=== PATIENT | female | born 1935 | race African-American/Black ===

== ENCOUNTER 2022-03-24 15:44 | Emergency (ER) | payer OTHER ==
[~2022-03-24] VITALS: Ht 152.4 cm; Wt 68.9 kg
[2022-03-24] MEDS ORDERED: ALLOPURINOL (15:59)
--- NOTE | 2022-03-24 16:01 | NUR ---
Dr Cordoba at the bedside for MSE.
[2022-03-24] MEDS ORDERED: MORPHINE SULFATE 2 MG/1 ML DISP.SYRIN IV ONE (16:15)
[2022-03-24] MEDS ORDERED: IV NORMAL SALINE 1000 ML BAG IV ONE (16:15)
[2022-03-24] MEDS ORDERED: MORPHINE SULFATE 4 MG/1 ML DISP.SYRIN ONE (16:16)
[2022-03-24 16:28] LABS: HEMATOCRIT 33.8 % (31.2-41.9); MEAN CORPUSCULAR HEMOGLOBIN 32.9 uug (24.7-32.8); MEAN CORPUSCULAR VOLUME 95.8 fL (75.5-95.3); PLATELET COUNT (AUTO) 228 K/uL (179-408)
[2022-03-24 16:33] LABS: CREATININE 0.7 mg/dL (0.6-1.3); POTASSIUM 4.3 mmol/L (3.5-5.1)
[2022-03-24 16:39] LABS: BILIRUBIN,DIRECT 0.1 mg/dL (0.0-0.2); BILIRUBIN,TOTAL 0.4 mg/dL (0.2-1.0); TOTAL PROTEIN, SERUM 6.3 g/dL (6.4-8.2)
[2022-03-24] MEDS ORDERED: AMOX-430 PO (17:22)
[2022-03-24] MEDS ORDERED: POLY17PO4 PO (17:22)
[2022-03-24 17:45] VITALS: BP 137/77
--- NOTE | 2022-03-24 17:45 | NUR ---
IV removed. Catheter intact and site benign. Pressure and 4x4 gauze applied to site. No bleeding noted.
--- NOTE | 2022-03-24 17:46 | NUR ---
Patient discharged to home in stable condition. Written and verbal after care instructions given. Patient and pt's daughter verbalize understanding of instructions. Stressed follow up or return to ER for worsening s/s.
== END 2022-03-24 17:46 | disposition home or self-care (01) ==
LOC: ER 15:44
DX: K57.32 Diverticulitis of large intestine without perforation or abscess without bleeding (principal); K58.9 Irritable bowel syndrome, unspecified; Z85.6 Personal history of leukemia
CPT/HCPCS: 74176; 80048; 80076; 83690; 85025; 96361; 96374; 99284; J2270; J7040; A4663

== ENCOUNTER 2022-04-22 19:35 | Inpatient (IN) | payer OTHER ==
[~2022-04-22] VITALS: Ht 167.6 cm; Wt 65.3 kg
[~2022-04-22 19:35] MED LIST: ALLOPURINOL; AMOX-430 PO; POLY17PO4 PO
--- NOTE | 2022-04-22 20:10 | NUR ---
PT PLACED IN ROOM 4A.
--- NOTE | 2022-04-22 20:12 | NUR ---
Josue STACY AT BEDSIDE, MSE IN PROGRESS.
[2022-04-22] MEDS ORDERED: IV NORMAL SALINE 500 ML BAG IV ONE (20:30)
--- NOTE | 2022-04-22 20:43 | NUR ---
Pt taken to CT
[2022-04-22 21:42] LABS: HEMATOCRIT 36.1 % (31.2-41.9); MEAN CORPUSCULAR HEMOGLOBIN 32.7 uug (24.7-32.8); MEAN CORPUSCULAR VOLUME 98.3 fL (75.5-95.3); PLATELET COUNT (AUTO) 151 K/uL (179-408)
[2022-04-22 21:50] LABS: CARBON DIOXIDE 27 mmol/L (21-32); CHLORIDE 104 mmol/L (98-107); CREATININE 0.7 mg/dL (0.6-1.3); GLUCOSE 102 mg/dL (74-106); UREA NITROGEN, BLOOD 15 mg/dL (7-18)
[2022-04-22 21:51] LABS: ETHANOL < 3 MG/DL (0-0)
[2022-04-22 21:58] LABS: ALANINE AMINOTRANSFERASE 27 U/L (14-59); ALKALINE PHOSPHATASE 271 U/L (50-136); ASPARTATE AMINOTRANSFERASE 29 U/L (15-37); BILIRUBIN,DIRECT 0.1 mg/dL (0.0-0.2); BILIRUBIN,TOTAL 0.4 mg/dL (0.2-1.0); LIPASE 94 U/L (73-393); TOTAL PROTEIN, SERUM 6.5 g/dL (6.4-8.2)
[2022-04-22 22:05] LABS: ACETAMINOPHEN < 2.0 ug/mL (10-30)
[2022-04-22 22:22] LABS: *BILIRUBIN,URIN NEGATIVE (NEGATIVE); *BLOOD, URINE 1+ (NEGATIVE); *CLARITY,URINE CLEAR (CLEAR); *COLOR,URINE YELLOW (YELLOW); *KETONES,URINE NEGATIVE (NEGATIVE); *UROBILINOGEN,URINE >=8.0 E.U./dl (NORMAL); LEUKOCYTE ESTERASE ,URINE NEGATIVE (NEGATIVE); NITRITE, URINE NEGATIVE (NEGATIVE); UGLUCOSE NEGATIVE (NEGATIVE)
[2022-04-22 22:38] LABS: *AMPHETAMINE, URINE NEGATIVE (NEGATIVE); *CANNABINOID, URINE NEGATIVE (NEGATIVE); *COCCAINE, URINE NEGATIVE (NEGATIVE); *OPIATE, URINE NEGATIVE (NEGATIVE); *PHENCYCLIDINE SCREEN,URINE NEGATIVE (NEGATIVE)
[2022-04-22 22:41] LABS: BACTERIA,URINE NONE SEEN /HPF (NONE SEEN); RBC,URINE 20-50 /HPF (0-3); SQUAMOUS EPITHELIAL CELL,UR MODERATE /HPF (NONE SEEN); WBC,URINE 0-3 /HPF (0-3)
--- NOTE | 2022-04-22 22:42 | NUR ---
Called [facility] for panel call
[2022-04-23] VITALS: BP 157/78
--- NOTE | 2022-04-23 00:19 | NUR ---
Report given to Barb CORDERO. going to room 324
[2022-04-23 00:25] LABS: BAND % (MANUAL) 3 % (0-10); LYMPHOCYTES % (MANUAL) 43 % (20-40); METAMYELOCYTES % 1 % (0-1); MONOCYTES % (MANUAL) 7 % (2-10); NEUTROPHILS % (MANUAL) 46 % (42-75)
[2022-04-23 01:40] VITALS: BP 157/78
--- NOTE | 2022-04-23 01:43 | NUR ---
pt taken to room 324 via gourney with all belongings.
[2022-04-23] MEDS ORDERED: MAGNESIUM HYDROXIDE 30 ML LIQUID UDC PO PRN (02:00)
[2022-04-23] MEDS ORDERED: REMEDY ESSENTIAL ZINC PASTE 113 GM TP PRN (02:00)
[2022-04-23] MEDS ORDERED: ONDANSETRON 4 MG/2 ML VIAL IV PRN (02:00)
[2022-04-23] MEDS ORDERED: ACETAMINOPHEN 325 MG TABLET PO PRN (02:00)
--- NOTE | 2022-04-23 02:42 | NUR ---
Admitted pt to [facility] from ER accompanied by ER nurse via kalen. She is alert and oriented to self, confused. On room air with no respiratory distress noted. No s/sx of pain and discomfort noted. Saline lock on R hand #22 patent and intact. Initial assessment and full body assessment done. All needs attended. Safety precautions observed. Call light placed within reach. Will continue to monitor.
[2022-04-23] MEDS: ENOXAPARIN SODIUM 40 MG/0.4 ML DISP.SYRIN SQ SCH ×2 (02:49→21:09)
[2022-04-23 04:00] VITALS: BP 141/74
[2022-04-23] MEDS: PANTOPRAZOLE SODIUM 40 MG TABLET.DR PO SCH (06:08)
--- NOTE | 2022-04-23 06:25 | NUR ---
Pt slept intermittently throughout the night. No respiratory distress noted and remains afebrile. Ambulatory, assisted to the toilet multiple times, noted to be unsteady. All needs attended. Call light placed within reach. Will endorse to next shift.
[2022-04-23 06:52] LABS: HEMATOCRIT 33.9 % (31.2-41.9); MEAN CORPUSCULAR HEMOGLOBIN 32.8 uug (24.7-32.8); PLATELET COUNT (AUTO) 175 K/uL (179-408)
[2022-04-23 07:21] LABS: NEUTROPHILS % (MANUAL) 0 % (42-75)
[2022-04-23 07:22] LABS: BILIRUBIN,TOTAL 0.5 mg/dL (0.2-1.0); CREATININE 0.7 mg/dL (0.6-1.3); MAGNESIUM 1.6 mg/dL (1.8-2.4); POTASSIUM 3.6 mmol/L (3.5-5.1); TOTAL PROTEIN, SERUM 6.5 g/dL (6.4-8.2)
[2022-04-23] MEDS: MAGNESIUM SULFATE/D5W 100 ML IV SCH ×2 (09:39→10:46)
[2022-04-23 12:00] VITALS: BP 136/77
[2022-04-23 16:00] VITALS: BP 141/79
--- NOTE | 2022-04-23 16:37 | NUR ---
Pt remain AAO x 1 confused and forgetful. No respiratory distress noted at room air, remains afebrile. Ambulatory, assisted to the toilet multiple times using FWW , noted to be unsteady on her feet. on droplet contact isolation for + Covid 19. needs attended. Call light placed within reach. Will continue to monitor closely for Comfort and safety.
[2022-04-23 20:15] VITALS: BP 138/66
[2022-04-24 04:50] VITALS: BP 140/79
[2022-04-24] MEDS: PANTOPRAZOLE SODIUM 40 MG TABLET.DR PO SCH (06:07)
--- NOTE | 2022-04-24 06:08 | NUR ---
Pt slept intermittently throughout the night. No respiratory distress noted and remains afebrile. Ambulatory with assist to the toilet and had one episode of BM. All needs attended. Call light placed within reach. Will endorse to next shift.
[2022-04-24 06:41] LABS: HEMATOCRIT 33.3 % (31.2-41.9); MEAN CORPUSCULAR HEMOGLOBIN 32.5 uug (24.7-32.8); MEAN CORPUSCULAR VOLUME 95.1 fL (75.5-95.3); PLATELET COUNT (AUTO) 168 K/uL (179-408)
[2022-04-24 06:45] LABS: CREATININE 0.6 mg/dL (0.6-1.3); MAGNESIUM 1.8 mg/dL (1.8-2.4); POTASSIUM 3.4 mmol/L (3.5-5.1)
[2022-04-24] MEDS: MIRALAX 17 GM POWD.PACK PO SCH (09:10)
[2022-04-24] MEDS: ALLOPURINOL 100 MG TABLET PO SCH (09:11)
[2022-04-24] MEDS ORDERED: POTASSIUM CHLORIDE 10 MEQ TAB.PRT.SR PO ONE (11:00)
[2022-04-24 12:13] VITALS: BP 134/110
[2022-04-24] MEDS ORDERED: POTASSIUM CHLORIDE 20 MEQ TAB.PRT.SR PO ONE (13:00)
[2022-04-24 16:41] VITALS: BP 129/64
[2022-04-24] MEDS: ENSURE WITH FIBER 237 ML LIQUID (CHOCOLATE) PO SCH (17:47)
[2022-04-24 20:40] VITALS: BP 105/60
[2022-04-24] MEDS: ENOXAPARIN SODIUM 40 MG/0.4 ML DISP.SYRIN SQ SCH (20:46)
--- NOTE | 2022-04-24 21:16 | NUR ---
Patient AAO x 1 confused and forgetful. Re-oriented patient to place/unit.On room air, no s/s of distress noted.remains afebrile. Continue on droplet contact isolation for + Covid 19. IV patent and intact on left FA 20g . Call light placed within reach. Will continue to monitor .
[2022-04-25 04:43] VITALS: BP 131/68
[2022-04-25] MEDS: PANTOPRAZOLE SODIUM 40 MG TABLET.DR PO SCH (06:11)
[2022-04-25 06:47] LABS: CREATININE 0.6 mg/dL (0.6-1.3); POTASSIUM 3.9 mmol/L (3.5-5.1)
[2022-04-25] MEDS: ALLOPURINOL 100 MG TABLET PO SCH (09:15)
[2022-04-25] MEDS: MIRALAX 17 GM POWD.PACK PO SCH (09:16)
[2022-04-25] MEDS: ENSURE WITH FIBER 237 ML LIQUID (CHOCOLATE) PO SCH ×3 (09:17→17:45)
--- NOTE | 2022-04-25 09:59 | NUR ---
awake, oriented to name only, pleasantly confused. reoriented. no ss of pain or sob. cont on droplet/contact isolation dt positive covid. noted with intermittent non productive coughing. comfortable on room air. safety maintained.
[2022-04-25 11:31] VITALS: BP 115/71
--- NOTE | 2022-04-25 14:26 | NUR ---
spoke with prateek watson, update given, was appreciative.
[2022-04-25 16:00] VITALS: BP 128/68
[2022-04-25 20:06] VITALS: BP 121/82
[2022-04-25] MEDS: ENOXAPARIN SODIUM 40 MG/0.4 ML DISP.SYRIN SQ SCH (20:23)
[2022-04-26 04:06] VITALS: BP 121/67
[2022-04-26] MEDS: PANTOPRAZOLE SODIUM 40 MG TABLET.DR PO SCH (06:15)
--- NOTE | 2022-04-26 06:58 | NUR ---
PAtient slept well.On ra.Saturating well. NO significant event during the shift. VSS.All needs anticipated and met accordingly.Will endorse to oncoming shift.
--- NOTE | 2022-04-26 08:00 | NUR ---
Received patient in bed awake and alert only to self. Pt is on covid isolation. Pt is on room air and denies any SOB. Safety measures are implemented. Will continue to monitor.
[2022-04-26] MEDS: MIRALAX 17 GM POWD.PACK PO SCH (09:22)
[2022-04-26] MEDS: ALLOPURINOL 100 MG TABLET PO SCH (09:22)
[2022-04-26] MEDS: ENSURE WITH FIBER 237 ML LIQUID (CHOCOLATE) PO SCH ×3 (09:22→17:21)
[2022-04-26 11:32] VITALS: BP 114/81
[2022-04-26 16:00] VITALS: BP 149/76
[2022-04-26 20:09] VITALS: BP 146/58
[2022-04-26] MEDS: ENOXAPARIN SODIUM 40 MG/0.4 ML DISP.SYRIN SQ SCH (21:05)
[2022-04-27 04:12] VITALS: BP 145/76
--- NOTE | 2022-04-27 04:54 | NUR ---
Received patient awake, seated in bed, alert to name only, no complain of pain, no sob noted, remain on droplet precaution due Covid +. Patient was kept clean and dry, cont to monitor.
[2022-04-27] MEDS: PANTOPRAZOLE SODIUM 40 MG TABLET.DR PO SCH (06:19)
--- NOTE | 2022-04-27 08:00 | NUR ---
AWAKE ALERT NO SIGNS OF DISTRESS, AFEBRILE, RA SAT 96%.. CONTINUE ON ISOLATION FOR COVID-19
[2022-04-27] MEDS: ALLOPURINOL 100 MG TABLET PO SCH (08:39)
[2022-04-27] MEDS: MIRALAX 17 GM POWD.PACK PO SCH (08:39)
[2022-04-27] MEDS: ENSURE WITH FIBER 237 ML LIQUID (CHOCOLATE) PO SCH ×3 (08:40→17:29)
[2022-04-27 11:30] VITALS: BP 147/76
--- NOTE | 2022-04-27 12:00 | NUR ---
NO ACUTE CHANGE FROM MORNING ASSESSMENT
--- NOTE | 2022-04-27 15:21 | NUR ---
TO [facility] FOR [facility] VIA AMBULANCE. REPORT GIVEN TO AMBULANCE
[2022-04-27 16:00] VITALS: BP 151/81
--- NOTE | 2022-04-27 16:51 | NUR ---
BACK FROM MRI/[facility] VIA [facility]BULANCE
--- NOTE | 2022-04-27 20:00 | NUR ---
RECEIVED PATIENT IN BED. AWAKE, WITH EPISODES OF CONFUSING. IV ACCESS PATENT AND INTACT. SHOWS NO SIGNS OF SOB, CHEST PAIN OR DIZZINESS. SAFETY PRECAUTIONS INITIATED. PATIENT CLOSELY MONITORED.
--- NOTE | 2022-04-27 20:05 | NUR ---
PATIENT TEMPERATURE NOTED TO BE ELEVATED AT 100.1. APPLIED ICE PACKS TO LOWER TEMP DOWN.
[2022-04-27 20:32] VITALS: BP 154/79
[2022-04-27] MEDS: ENOXAPARIN SODIUM 40 MG/0.4 ML DISP.SYRIN SQ SCH (21:49)
[2022-04-28 04:15] VITALS: BP 146/85
[2022-04-28] MEDS: PANTOPRAZOLE SODIUM 40 MG TABLET.DR PO SCH (06:04)
--- NOTE | 2022-04-28 06:47 | NUR ---
PATIENT SLEPT THROUGH THE NIGHT WITH NO COMPLAINS. ON ROOM AIR. IV ACCESS PATENT AND INTACT. ALL NEEDS ATTENDED TO AND MET. SAFETY PRECAUTIONS MAINTAINED. ENDORSED TO DAY SHIFT.
[2022-04-28 06:58] LABS: HEMATOCRIT 37.1 % (31.2-41.9); MEAN CORPUSCULAR HEMOGLOBIN 32.4 uug (24.7-32.8); MEAN CORPUSCULAR VOLUME 93.5 fL (75.5-95.3); PLATELET COUNT (AUTO) 169 K/uL (179-408)
[2022-04-28 07:16] LABS: BILIRUBIN,TOTAL 0.7 mg/dL (0.2-1.0); CREATININE 0.6 mg/dL (0.6-1.3); MAGNESIUM 1.9 mg/dL (1.8-2.4); POTASSIUM 4.2 mmol/L (3.5-5.1); TOTAL PROTEIN, SERUM 6.9 g/dL (6.4-8.2)
[2022-04-28] MEDS: ENSURE WITH FIBER 237 ML LIQUID (CHOCOLATE) PO SCH ×3 (08:31→18:12)
[2022-04-28] MEDS: ALLOPURINOL 100 MG TABLET PO SCH (08:31)
[2022-04-28] MEDS: MIRALAX 17 GM POWD.PACK PO SCH (08:31)
--- NOTE | 2022-04-28 09:00 | NUR ---
Patient is weak, easily arousable but with low tone unclear speech. Spoke with daughter Eloisa while in the room with patient. Daughter states mother is alert but when she has a long day, like the one she had yesterday when having an MRI, she tends to shut down and wants to stay quiet. patient able to speak to daughters on the phone for some time. PO appetite is low, Ensure supplements continued as well as one on one feeding.
[2022-04-28 11:55] VITALS: BP 159/89
--- NOTE | 2022-04-28 12:00 | NUR ---
Daughter called 2nd time to state patient is more confused and believes she would benefit more by being home with her family. Daughter requested a call from MD and discharge if possible for today.
--- NOTE | 2022-04-28 15:01 | NUR ---
Stat chest xray ordered by Dr. Tomas. aware that patients, daughter, Susan, would like to speak to him.
[2022-04-28 16:00] VITALS: BP 142/80
[2022-04-28] MEDS ORDERED: NITROFURANTOIN/NITROFURAN MAC 100 MG CAPSULE PO SCH (17:00)
[2022-04-28] MEDS ORDERED: MULT-1045 PO (17:04)
[2022-04-28] MEDS ORDERED: NITR100C11 PO (17:04)
[2022-04-28] MEDS ORDERED: ACET325T53 PO (17:04)
[2022-04-28] MEDS ORDERED: Lactose-Free Food/Fiber PO (17:04)
--- NOTE | 2022-04-28 19:30 | NUR ---
Patient discharged from [facility], dx covid 19. Patient remains weak with unclear speech. Patient able to transfer with 2 person max assist. Discharged with all her belongings, IV to left hand DC. Discharge instructions given to daughter Kia and patient assisted into private car.
[2022-04-28] MEDS ORDERED: METO25TA6 PO (20:16)
== END 2022-04-28 19:30 | disposition home or self-care (01) | DRG 177 ==
LOC: ER 19:37 → MEDSURG3 23:00
PROVIDERS: ADMIT Nurse Practitioner Acute Care; ATTEND Internal Medicine
DX: U07.1 COVID-19 (principal); E43 Unspecified severe protein-calorie malnutrition; G92.8 Other toxic encephalopathy; N39.0 Urinary tract infection, site not specified; D68.59 Other primary thrombophilia; B96.89 Other specified bacterial agents as the cause of diseases classified elsewhere; D72.819 Decreased white blood cell count, unspecified; M10.9 Gout, unspecified; M19.90 Unspecified osteoarthritis, unspecified site; Z86.73 Personal history of transient ischemic attack (TIA), and cerebral infarction without residual deficits; M47.812 Spondylosis without myelopathy or radiculopathy, cervical region; D69.6 Thrombocytopenia, unspecified; E83.42 Hypomagnesemia; E87.6 Hypokalemia; F01.50 Vascular dementia, unspecified severity, without behavioral disturbance, psychotic disturbance, mood disturbance, and anxiety; K57.30 Diverticulosis of large intestine without perforation or abscess without bleeding; M47.9 Spondylosis, unspecified; Z74.09 Other reduced mobility; Z68.23 Body mass index [BMI] 23.0-23.9, adult
CPT/HCPCS: 36415; 70030-TC; 70450; 70551; 71045; 83615; 83690; 83735; 84100; 84484; 85025; 86140; 87040; 93005; 97161; A4663; C1758; G0378; G0480; J1650; J3475; J7040; J8499